=== PATIENT | male | born 1960 | race Caucasian/White ===

== ENCOUNTER 2022-11-07 14:53 | Outpatient (CLI) | payer BC, SELFPAY ==
--- NOTE | 2022-11-07 15:39 | ECG_ITS ---
Measurements Intervals [place] Rate: 64 P: 59 [place]: 196 QRS: 52 QRSD: 98 T: 54 QT: 397 QTc: 410 Interpretive Statements SINUS RHYTHM BASELINE ARTIFACT- I, II, III, AVR, AVF NORMAL ECG NO PREVIOUS ECG AVAILABLE FOR COMPARISON Electronically Signed On 11-07-2022 16:16:24 BOTTOM FILLER by Walter Greco D.O.
[2022-11-07 16:09] LABS: Anion Gap 6 mmol/L (8-16); Blood Urea Nitrogen 18 mg/dL (9-20); Calcium 8.5 mg/dL (8.4-10.2); Carbon Dioxide 25 mmol/L (22-30); Chloride 107 mmol/L (98-107); Estimated Glomerular Filt Rate > 60; Glucose 129 mg/dL (65-110); Sodium 138 mmol/L (137-145)
== END 2022-11-07 14:54 | disposition home or self-care (01) ==
LOC: ANHSURGERY 15:27
PROVIDERS: Anesthesiology; Visit Provider Otolaryngology
DX: R73.03 Prediabetes (principal); I10 Essential (primary) hypertension
CPT/HCPCS: 36415; 80048; 93005

== ENCOUNTER 2022-11-13 01:49 | Day surgery (SDC) | payer BC, SELFPAY ==
[2022-11-02 11:36] VITALS: BMI 33.0
--- NOTE | 2022-11-02 11:40 | PC.NURSE ---
Report to the Outpatient Waiting Room, entrance under the green pavilion located off [facility], at time 10:00 on date 11/13/22. Planned Procedure Time: 12:00. Time changes happen often and if your time is changed the preop area will call you the afternoon before. - You and your visitor will be asked to self-screen and do not enter if you have any COVID symptoms. - Only one visitor is requested with a max of two and NO children visitors are allowed at this time. - The patient visitor may be requested to leave or wait in car when not with patient due to distancing restrictions. - A mask is optional within the hospital. Patients may have clear liquids (water, carbonated beverages, clear teas, apple juice) until 3 hours prior to surgery (9:00) with a maximum of 20 ounces. - No food from midnight until time of surgery Take the following medications with a SIP of water the morning of surgery: THYROID Medications to discontinue per physician: N/A Date to take last dose: N/A Please no make-up, nail malaysian, hairspray, perfume, deodorant, or body powder the day of surgery. No jewelry (including any body piercings) or valuables the day of surgery, leave them at home. Please take a shower or bath the night before, or the morning of, surgery with an antibacterial soap. Wear comfortable, loose fitting clothing. - Jewelry must be removed prior to entering the operating room. Rings and piercings that are not removed may be cut off. - The hospital will not accept responsibility for valuables. - Please leave all valuables, including medications, at home the day of surgery. If you are going home after surgery, a licensed truck driver supervisor must drive you home. - NO public transportation without another adult if you receive anesthesia. - We recommend that an adult stay with you for 24 hours following discharge. - We also recommend that you do not drive, make important decision, drink alcoholic beverages, or take any drugs that were not prescribed by your health care provider for at least 24 hours after your discharge time. Follow any additional instructions given to you from your surgeon. If you or anyone in your household have experienced Covid symptoms in the past week, please notify your surgeon or the nurse liaison at the phone number below for possible testing. Telephone instructions given to PT - NOHEMY CONTRERAS and asked if any additional questions and then verbalized understanding. Patient advised to call surgeon office or pre surgery nurse liaison [phone] if any additional questions.
--- NOTE | 2022-11-12 20:49 | P.HP_ITS ---
H&P: HPI History of Present Illness Date/Time: 11/12/22 20:49 Chief Complaint: Nasal obstruction, nasal congestion, septal deviation, inferior turbinate hypertrophy epistaxis Narrative: Planned procedure Review of Systems Review of Systems: All systems reviewed & are unremarkable except as noted in HPI and below PMFSH Family History Family History Sibling Diabetes mellitus Grandparent Diabetes mellitus Social History Social History Smoking status: Never smoker Alcohol intake: current Drinks per week: 3 Substance use: never Substance use type: does not use Lack of Transportation: No Lack of Food: Never True Current Housing: I Have Housing Difficulty Paying Gas/Electric Bills: No Difficulty Paying for Meds: No Currently Unemployed: No Education: High School Diploma/GED Difficulty w/ Childcare or Family Care: No Living arrangements: with family Occupation/Education: occupation Additional occupation/education comments: [place] Gender identity (if verbalized by the patient): Male Spiritual care concerns: No Meds Home Medications and Allergies Home Medications Medication Instructions Recorded Confirmed Type metformin 500 mg tablet 500 mg PO BID 10/24/22 11/02/22 History olmesartan 40 mg tablet 20 mg PO BID 10/24/22 11/02/22 History thyroid (pork) 90 mg tablet (STATION OPERATOR 90 mg PO DAILY 11/02/22 11/02/22 History Thyroid) Allergies Allergy/AdvReac Type Severity Reaction Status Date / Time bee venom protein (honey bee) Allergy Anaphylaxis Verified 11/02/22 11:34 Exam Narrative: Left septal deviation turbinate hypertrophy Assessment and Plan Assessment and plan (1) Nasal obstruction: Code(s): J34.89 - Other specified disorders of nose and nasal sinuses Status: Acute Assessment and Plan: All risks discussed, plan OR left maxillary antrostomy septoplasty turbinate reduction with outfracture, ligation of sphenopalatine artery. (2) Nasal congestion: Code(s): R09.81 - Nasal congestion Status: Acute (3) Nasal septal deviation: Code(s): J34.2 - Deviated nasal septum Status: Acute (4) Hypertrophy of both inferior nasal turbinates: Code(s): J34.3 - Hypertrophy of nasal turbinates Status: Acute (5) Epistaxis: Code(s): R04.0 - Epistaxis Status: Acute
[2022-11-13] VITALS (10 sets, daily range): BP systolic 144–177; BP diastolic 78–104; PULSE 51–70; RESP 14–20; TEMP 36.5–36.6; O2SAT 53–100
[2022-11-13] MEDS: ACETAMINOPHEN 500 MG TABLET 1000 MG PO (10:26)
[2022-11-13] MEDS: LACTATED RINGERS 1,000 ML 30 ML IV CONT ×2 (10:43→13:49)
[2022-11-13 10:45] LABS: Glucose Point of Care 100 mg/dl (65-105)
--- NOTE | 2022-11-13 11:22 | P.PNAN_ITS ---
Anes - Initial Pre Proc Eval Procedure: Operation Date: 11/13/22 12:00 Proposed Procedures p Left Maxillary Antrostomy without Tissue Removal, Bilateral Inferior Turbinectomy with OutFracture, Left Sphenopalatine Ligation, Left Posterior Nasal Cautery - Brandon Riggins MD s Endoscopic Septoplasty - Brandon Riggins MD Date/Time: 11/13/22 11:22 Surgeon: Brandon Riggins MD Pre Op Diagnosis: Septal Dev Patient Data Age: 61 Gender: M Height: 1.85 m Weight: 122.7 kg Last Vital Signs Temp 36.5 C 11/13/22 10:47 Pulse 51 L 11/13/22 10:47 Resp 16 11/13/22 10:47 BP 150/81 H 11/13/22 10:47 Pulse Ox 99 11/13/22 10:47 O2 Del Method Room Air 11/13/22 10:47 Allergies Allergy/AdvReac Type Severity Reaction Status Date / Time bee venom protein (honey bee) Allergy Severe Anaphylaxis Verified 11/13/22 10:14 Home Medications Medication Instructions Recorded Confirmed Type metformin 500 mg tablet 500 mg PO BID 10/24/22 11/13/22 History olmesartan 40 mg tablet 20 mg PO BID 10/24/22 11/13/22 History thyroid (pork) 90 mg tablet (BATHING SUIT MAKER 90 mg PO DAILY 11/02/22 11/13/22 History Thyroid) Laboratory Tests 11/13/22 10:42 POC Capillary Glucose 100 mg/dl mg/dl (65-105) Patient hx anesthesia problems: none Family hx anesthesia problems: none Results Review: All pre-operative results and documents have been reviewed as part of the pre- operative evaluation. PENDING SALE TO [facility] Past Medical History Medical History (Updated 11/13/22 @ 11:22 by Juan Carlos Arreaga MD) Hypothyroidism Obesity Family History Family History Sibling Diabetes mellitus Grandparent Diabetes mellitus Social History Social History Smoking status: Never smoker Alcohol intake: current Drinks per week: 3 Substance use: never Substance use type: does not use Lack of Transportation: No Lack of Food: Never True Current Housing: I Have Housing Difficulty Paying Gas/Electric Bills: No Difficulty Paying for Meds: No Currently Unemployed: No Education: High School Diploma/GED Difficulty w/ Childcare or Family Care: No Living arrangements: with family Occupation/Education: occupation Additional occupation/education comments: [place] Gender identity (if verbalized by the patient): Male Spiritual care concerns: No Anes - Eval Final PreProcedure Day of Procedure 11/13/22 11:22 Patient weight: obese Heart: regular rate and rhythm Lungs: clear to auscultation Airway: Mallampati scale class II Neurological: alert and oriented Last oral intake: >/= 8 hours ASA classification: III Emergent: no Anesthetic plan: proceed Anesthesia type and monitoring: general ETT and standard monitoring Results Review: All pre-operative results and documents have been reviewed as part of the pre- operative evaluation. Informed Consent: The patient's anesthetic plan and its attendant risks and benefits were discussed with the patient/family/POA. Questions were solicited and answers prov ided to the satisfaction of the patient/family/POA.
--- NOTE | 2022-11-13 11:49 | WPDHPUPDATE1 ---
History and Physical Update Update Date/Time: 11/13/22 11:49 History and Physical has been reviewed, including an updated exam of the patient. There are NO changes in the patient's condition. Risks, benefits, and alternatives have been discussed and questions answered. Patient agrees to proceed with procedure. Will add nasal cautery to procedure
[2022-11-13] MEDS: ceFAZolin 2 GM/D5W 50 ML 2 GM/50 ML BAG IVPB (12:20)
[2022-11-13] MEDS: LIDO 2%/EPINEPHRINE 1:100,000 50 ML VIAL 15 ML INFILTRATE (13:29)
[2022-11-13] MEDS: MUPIROCIN 2% OINT 22 GM TUBE 1 APPLIC EACH NARE (13:30)
--- NOTE | 2022-11-13 13:59 | P.OP_ITS ---
Procedure Note - Detailed Date of Procedure 11/13/22 Pre-op Diagnosis Septal DevHypertrophy nasal obstruction nasal congestion a left-sided epistaxis left abnormal septal tissue Post-op Diagnosis Same Procedure Performed endoscopic nasal endoscopy endoscopic assisted septoplasty inferior turbinate submucosal reduction with outfracture left-sided ligation cautery sphenopalatine artery left-sided maxillary antrostomy left-sided biopsy of abnormal tissue posterior cautery nasal passage Surgeon Brandon Riggins MD Anesthesia General Indications see above Findings left subcentimeter abnormal tissue likely from the rhino rocket biopsy just to be sure. Deviated septum multiple perforations on the left side where the spur was. None on the right. Turbinate hypertrophy well reduced. Sphenopalatine artery located transected cauterized. Posterior nasal septal read septal artery also cauterized out to the posterior cautery Description of Procedure patient identified consent verified. Patient brought operating. Time-out for review general anesthesia induced endotracheal tube secured. 10 cc 1% lidocaine 1 100,000 parts epinephrine injected deep to the nasal septum bilaterally. Fifteen blade utilized to make [place] incision left nasal septal flap elevated tears over the spur. Right osteotome utilized to cross over. Right nasal septal flap elevated 7 Croatian suction. No tears at all. Deviated septum with osteotome [place] Sung forceps Silver forceps. Septum closed anteriorly with 3 interrupted 5 0 fast gut sutures. Turbinates reduced submucosal plane microdebrider with turbinate blade outfractured with [place]. Left maxillary antrostomy performed straight through cut double ball tip probe backbiter microdebrider. Sphenopalatine artery ligated by finding the Jeanette ethmoidalis elevating mucosa off the medial side of the maxilla. Artery Bovie Bovie suction electrocautery setting of 15. Posterior septal artery also located bovied using Bovie suction electrocautery at setting of 10. Greene splints placed sutured anteriorly using 3-0 nylon suture mattressed. Patient tolerated procedure well blood loss 20 cc per day I performed all dictated portions no complications. Care the patient given Anesthesiology. Nova pack Nova pack placed against the posterior septal as well as SP a regions. Estimated Blood Loss 20 Drains No Packing Yes ( No pack) Pathology Yes Complications No immediate complications Condition Stable Disposition PACU [facility] Billing Surgery - Charge Forward: Surgery Billing
[2022-11-13] MEDS: fentaNYL CITRATE INJ (*CRX) 100 MCG/2 ML VIAL 25 MCG IV PUSH ×4 (14:08→14:20)
[2022-11-13] MEDS: oxyCODONE HCL (*CRX) 5 MG TAB IR PO (15:07)
[2022-11-13] MEDS: hydrALAZINE HCL 20 MG/ML VIAL 10 MG IV PUSH (15:28)
== END 2022-11-13 16:20 | disposition home or self-care (01) ==
PROVIDERS: Visit Provider Otolaryngology
PROC: (CPT 30520; 2022-11-13 12:00)
DX: J34.2 Deviated nasal septum (principal); R04.0 Epistaxis; J34.3 Hypertrophy of nasal turbinates; R09.81 Nasal congestion; J34.89 Other specified disorders of nose and nasal sinuses; E03.9 Hypothyroidism, unspecified; Z79.84 Long term (current) use of oral hypoglycemic drugs; E66.9 Obesity, unspecified; Z68.35 Body mass index [BMI] 35.0-35.9, adult
CPT/HCPCS: 30520; 30140; 31256; 31241; 82948; 88304; A9270; J0171; J0330; J0360; J0690; J1100; J1940; J2250; J2405; J2704; J3010; J7120

== ENCOUNTER 2023-06-21 08:29 | Emergency (ER) | payer BC, SELFPAY ==
--- NOTE | ~2023-06-21 | XR_ITS ---
Left Knee Technique: AP, lateral, and sunrise views were obtained. Clinical History: Pain Findings: No fracture or dislocation is seen. Osseous alignment is anatomic. There is moderate spurri ng of the patellofemoral compartment. There is minimal spurring of the medial lateral compartments. P robable moderate to large joint effusion is seen, with possible small intra-articular loose body. 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 Probable moderate to large joint effusion with possible intra-articular loose body. Reviewed, dictated and finalized at location M. 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 Probable moderate to large joint effusion with possible intra-articular loose b cadence.
[2023-06-21 08:52] VITALS: BP 146/77; PULSE 65; RESP 16; TEMP 36.4; O2SAT 98
--- NOTE | 2023-06-21 10:19 | ED.EXTPRO ---
HPI - Extremity Problem General Chief complaint: Extremity Problem,Nontraumatic Stated complaint: Ross's cyst L knee Time Seen by Provider: 06/21/23 10:19 Source: patient Mode of arrival: ambulatory Limitations: no limitations History of Present Illness HPI Narrative: Gonzalo is a 62-year-old male patient presenting to the clinic today with complaints of left knee swelling and pain. He reports he does have a history of a Ross cyst in his left knee. Also reports history of a work related injury causing a meniscus tear and he had to have this repaired. Reports that he has not had a new injury however his knee has become swollen over the last 1-2 days. Related Data Home Medications Medication Instructions Recorded Confirmed metformin 500 mg tablet 500 mg PO BID 10/24/22 01/01/23 olmesartan 40 mg tablet 20 mg PO BID 10/24/22 01/01/23 thyroid (pork) 90 mg tablet (PRESIDING JUDGE 90 mg PO DAILY 11/02/22 01/01/23 Thyroid) Allergies Allergy/AdvReac Type Severity Reaction Status Date / Time bee venom protein (honey bee) Allergy Severe Anaphylaxis Verified 06/21/23 09:53 Review of Systems Review of Systems: Pertinent positives per HPI. Patient denies any fever, chills, rash, headache, visual changes, dizziness, cough, runny nose, sore throat, shortness of breath, chest pain, palpitations, nausea, vomiting, diarrhea, constipation, abdominal pain, or any urinary issues. [facility] Past Medical History Medical History Hypothyroidism Obesity Family History Family History Sibling Diabetes mellitus Grandparent Diabetes mellitus Social History Social History Smoking status: Never smoker Alcohol intake: current Drinks per week: 3 Substance use: never Substance use type: does not use Lack of Transportation: No Lack of Food: Never True Current Housing: I Have Housing Difficulty Paying Gas/Electric Bills: No Difficulty Paying for Meds: No Currently Unemployed: No Education: High School Diploma/GED Difficulty w/ Childcare or Family Care: No Living arrangements: with family Occupation/Education: occupation Additional occupation/education comments: [place] Gender identity (if verbalized by the patient): Male Spiritual care concerns: No Comments At the time of my signature, I reviewed and agree with the nursing past medical, surgical, social, and family history. There is no relevant family history pertinent to the patient complaint. Exam Narrative: General: Well-developed, well nourished, in no apparent distress Head: Normocephalic, atraumatic. Cardio: Regular rate and rhythm, s1 and s2 normal, no murmur appreciated. Resp: Clear to auscultation bilaterally, no rhonchi, rales, wheezing or rubs. Musculoskeletal: No deformity, left knee swelling with tenderness to palpation to the anterior and posterior knee.non-tender to palpation, grossly normal range of motion, muscle strength strong and equal, peripheral pulse strong, no edema, no cyanosis, normal gait and station Course Course Emergency Course: Portions of this record may have been created with voice recognition software. Vital Signs Vital signs: Vital Signs Temperature 36.4 C L 06/21/23 08:52 Pulse Rate 65 06/21/23 08:52 Respiratory Rate 16 06/21/23 08:52 Blood Pressure 146/77 H 06/21/23 08:52 Pulse Oximetry 98 06/21/23 08:52 Oxygen Delivery Room Air 06/21/23 08:52 Temperature 36.4 C L 06/21/23 08:52 Pulse Rate 65 06/21/23 08:52 Respiratory Rate 16 06/21/23 08:52 Blood Pressure 146/77 H 06/21/23 08:52 Pulse Oximetry 98 06/21/23 08:52 Oxygen Delivery Room Air 06/21/23 08:52 Vital signs reviewed Procedures Joint Aspiration/Injection Joint Asp./Inject. 1: Joint Aspiration Date: 06/21/23
[2023-06-21 11:53] VITALS: BP 148/92; PULSE 59; RESP 18; O2SAT 98
[2023-06-21 13:01] LABS: Appearance Synovial Fluid Cloudy (Clear); Color Synovial Fluid Other (Colorless); Source Synovial Fluid Synovial fluid
[2023-06-21 13:02] LABS: Lymphocytes Synovial Fluid 16 %; Macrophages Synovial Fluid 3 %; Monocytes Synovial Fluid 30 %; Neutrophils Synovial Fluid 51 % (0-25)
[2023-06-21 13:49] LABS: Crystals Synovial Fluid None Seen (None Seen)
[2023-06-24 20:26] LABS: Glucose Synovial Fluid 96 mg/dL
[2023-07-02 09:21] LABS: Total Protein Synovial Fluid 1.8
== END 2023-06-21 12:23 | disposition home or self-care (01) ==
PROVIDERS: Emergency Provider Nurse Practitioner Family
DX: M25.462 Effusion, left knee (principal); E03.9 Hypothyroidism, unspecified; E66.9 Obesity, unspecified; Z79.84 Long term (current) use of oral hypoglycemic drugs
CPT/HCPCS: 20610; 73562; 82945; 84157; 87070; 87075; 87205; 89051; 89060; 99283; A9270